=== PATIENT | female | born 1995 | race Caucasian/White ===

== ENCOUNTER 2016-07-14 15:55 | Emergency (ER) | payer BC ==
[~2016-07-14] VITALS: Ht 142.2 cm; Wt 40.0 kg
[2016-07-14 16:01] VITALS: BP 132/94; PULSE 97; TEMP 98.6
[2016-07-14] MEDS ORDERED: AMOXICILLIN 25250 MG PO (16:05)
[2016-07-14] MEDS ORDERED: BIRTH CONTROL PO (16:05)
== END 2016-07-14 17:41 | disposition home or self-care (01) ==
LOC: COL.ER 15:55
DX: J02.9 Acute pharyngitis, unspecified (principal)